=== PATIENT | male | born 1960 | race Caucasian/White ===

== ENCOUNTER 2021-11-28 00:58 | Inpatient (IN) | payer OTHER ==
[2021-11-28] MEDS ORDERED: SODIUM CHLORIDE 0.9% 1,000 ML IV ONE (02:55)
[2021-11-28] MEDS ORDERED: SODIUM CHLORIDE 0.9% 1,000 ML IV SCH (03:00)
[2021-11-28 03:33] LABS: Basophils % (A) 0 %; Eosinophils % (A) 0 %; HCT 33.7 % (39.0-53.0); HGB 11.5 gm/dL (13.0-17.5); Lymphocytes # (A) 0.6 k/uL (1.0-4.8); Lymphocytes % (A) 5 %; MCH 35.2 pg (25.0-35.0); MCHC 34.3 g/dL (31.0-37.0); MCV 102.7 fL (80.0-100.0); Macrocytosis Slight; Mean Platelet Volume 8.4; Monocytes # (A) 0.5 k/uL (0-1.0); Monocytes % (A) 4 %; Neutrophils # (A) 11.9 k/uL (1.3-7.7); Neutrophils % (A) 91 %; Platelet Count 248 k/uL (150-450); RBC 3.28 m/uL (4.30-5.90); WBC 13.1 k/uL (3.8-10.6)
[2021-11-28 03:34] LABS: Lactic Acid, Venous 1.8 mmol/L (0.7-2.0)
[2021-11-28 03:36] LABS: ALT 35 U/L (4-49); AST 32 U/L (17-59); African American GFR (CKD) >90 (>60 ml/min/1.73 sqM); Albumin 2.5 g/dL (3.5-5.0); Alcohol <10 mg/dL; Alkaline Phosphatase 58 U/L (38-126); Anion Gap 14 mmol/L; Blood Urea Nitrogen 41 mg/dL (9-20); Calcium 6.5 mg/dL (8.4-10.2); Carbon Dioxide 15 mmol/L (22-30); Chloride 109 mmol/L (98-107); Creatine Kinase 206 U/L (55-170); Glucose 77 mg/dL (74-99); Magnesium 1.7 mg/dL (1.6-2.3); Non-African American GFR(CKD) >90 (>60 ml/min/1.73 sqM); Phosphorus 3.6 mg/dL (2.5-4.5); Sodium 138 mmol/L (137-145); Total Bilirubin 0.6 mg/dL (0.2-1.3); Total Protein 4.3 g/dL (6.3-8.2)
[2021-11-28 03:42] LABS: Potassium 2.5 mmol/L (3.5-5.1)
[2021-11-28] MEDS ORDERED: Potassium Replacement Protocol 1 EACH MISC MISCELLANE PRN (03:52)
[2021-11-28] MEDS ORDERED: ONDANSETRON 4 MG/2 ML VIAL IVP PRN (03:53)
[2021-11-28] MEDS ORDERED: LORazepam 2 MG/ML INJ IV PRN ×3 (03:53)
[2021-11-28] MEDS ORDERED: NALOXONE 0.4 MG/ML 1 ML VIAL IV PRN (03:53)
--- NOTE | 2021-11-28 03:58 | XR ---
EXAMINATION TYPE: XR chest 1V DATE OF EXAM: 11/28/2021 COMPARISON: NONE HISTORY: Fall. Pain TECHNIQUE: Single view FINDINGS: There is no heart failure nor confluent pneumonic infiltrate. Costophrenic angles are clear there are chest leads. Bony thorax is intact. IMPRESSION: No active cardiopulmonary disease. Normal heart.
--- NOTE | 2021-11-28 03:58 | CT ---
EXAMINATION TYPE: CT brain marge banda con DATE OF EXAM: 11/28/2021 COMPARISON: None HISTORY: possible fall CT DLP: 1314.5 mGycm Automated exposure control for dose reduction was used. Images obtained from the skull base to T1 vertebra with no contrast. Images obtained of the brain wit h no contrast. There is cerebral cortical atrophy. There is no mass effect or midline shift. No sign of intracranial hemorrhage. The calvarium is intact. There is some minimal hypodensity in the periventricular white matter. The cervical vertebra have normal alignment. There is degenerative disc space narrowing from C4 to C7 with spurring of the endplates. Facet joints are intact. There is mild cervical hypertrophic facet a rthropathy. No compression fracture. No subluxation. IMPRESSION: Mild cerebral atrophy and chronic small vessel ischemia. No acute intracranial abnormality. Mild spondylotic changes in the mid and lower cervical spine. No fracture seen.
--- NOTE | 2021-11-28 03:59 | XR ---
EXAMINATION TYPE: XR pelvis AP view DATE OF EXAM: 11/28/2021 COMPARISON: NONE HISTORY: Fall. Pain TECHNIQUE: Single view FINDINGS: The pelvic ring is intact. Proximal femurs and hip joints are intact. Sacroiliac joints are intact. IMPRESSION: Negative pelvis x-ray exam. No fracture
[2021-11-28] MEDS ORDERED: DEXTROSE 5%-0.45% NACL 1,000 ML IV SCH (04:00)
[2021-11-28] MEDS: POTASSIUM CHLORIDE 10 MEQ in WATER FOR INJECTION 1 100ML.BAG IVPB SCH ×6 (04:04→10:21)
[2021-11-28] MEDS: SODIUM CHLORIDE 0.9% 1,000 ML IV SCH ×3 (04:05→13:33)
[2021-11-28] MEDS ORDERED: THIAMINE 100 MG/ML 2 ML VIAL IM ONE (04:15)
[2021-11-28] MEDS: PANTOPRAZOLE 40 MG/10 ML VIAL IV SCH (08:20)
[2021-11-28] MEDS ORDERED: LORazepam 1 MG/0.5 ML VIAL IV PRN ×3 (17:13→17:14)
[2021-11-28] MEDS: THIAMINE 100 MG TAB PO SCH (19:20)
--- NOTE | 2021-11-29 00:06 | HP ---
HISTORY AND PHYSICAL CHIEF COMPLAINT: Fall and weakness. HISTORY OF PRESENT ILLNESS: This is a 61-year-old gentleman with a past medical history of GERD, pneumonia, ETOH, who is apparently living by himself at home. Apparently, his dad whom he was taking care of is in halfway at this time, but currently during a valve check, the patient was found lying on the floor covered with feces and the patient was taken to [facility]. The patient has rhabdomyolysis. The patient also is confused. The patient is being closely monitored. There is no history of any fever, rigor, or chills. PAST MEDICAL HISTORY: Reviewed including GERD, pneumonia, ETOH. HOME MEDICATIONS: None. ALLERGIES: None. FAMILY HISTORY: History of COPD in the family. SOCIAL HISTORY: Smoking and ETOH. REVIEW OF SYSTEMS: A 14-point review of systems is negative except as mentioned earlier. PHYSICAL EXAMINATION: VITAL SIGNS: Pulse is 90, blood pressure 108/77, respirations 18. HEENT: Conjunctivae normal. NECK: No JVD. CARDIOVASCULAR: S1, S2 muffled. RESPIRATION: Breath sounds diminished at the bases. A few scattered rhonchi and crackles. ABDOMEN: Soft, nontender. LEGS: No edema. NERVOUS SYSTEM: Diffusely weak. LABORATORY DATA: Reviewed. Potassium 2.5. ASSESSMENT: 1. Change in mental status, metabolic encephalopathy, possibly secondary to ETOH or weakness. 2. Hypokalemia. 3. Dehydration, severe. 4. Severe malnutrition. 5. Gait dysfunction. 6. History of gastroesophageal reflux disease. RECOMMENDATIONS AND DISCUSSION: This is a 61-year-old gentleman who presented with multiple complex medical issues. We will monitor the patient closely. Replace potassium. Otherwise, monitor lytes closely. Watch for EtOH, DT precautions and evaluation. Otherwise, PT/OT evaluation. The patient might need ECF rehab. Nutrition supplementation. Dietary evaluation. Once again, the prognosis is extremely guarded. Further recommendations to follow. See orders for further details. MMODL / IJN: [id number] / MTDD
[2021-11-29] MEDS: SODIUM CHLORIDE 0.9% 1,000 ML IV SCH ×2 (06:59→07:24)
[2021-11-29] MEDS: PANTOPRAZOLE 40 MG/10 ML VIAL IV SCH (07:25)
[2021-11-29] MEDS: THIAMINE 100 MG TAB PO SCH ×2 (07:25→17:38)
[2021-11-29] MEDS ORDERED: LORazepam 1 MG TAB PO PRN ×3 (08:45→08:48)
[2021-11-29 11:10] LABS: Basophils # (A) 0.03 X 10*3/uL (0.00-0.10); Basophils % (A) 0.3 %; Eosinophils # (A) 0.03 X 10*3/uL (0.04-0.35); Eosinophils % (A) 0.3 %; HCT 33.6 % (39.6-50.0); HGB 11.3 g/dL (13.0-17.0); Immature Grans, Automated 0.8 %; Lymphocytes # (A) 1.55 X 10*3/uL (0.90-5.00); Lymphocytes % (A) 16.1 %; MCH 34.8 pg (27.0-32.0); MCHC 33.6 g/dL (32.0-37.0); MCV 103.4 fL (80.0-97.0); Mean Platelet Volume 10.6 fL (9.5-12.2); Monocytes # (A) 0.74 X 10*3/uL (0.20-1.00); Monocytes % (A) 7.7 %; NRBC Per 100 WBC 0 /100 WBCS (0.0-0.0); Neutrophils # (A) 7.19 X 10*3/uL (1.80-7.70); Neutrophils % (A) 74.8 %; Platelet Count 224 X 10*3/uL (140-440); RBC 3.25 X 10*6/uL (4.40-5.60); RDW 13.7 % (11.5-14.5); WBC 9.62 X 10*3/uL (4.50-10.00)
[2021-11-29 11:43] LABS: African American GFR (CKD) 127.6 (60.0-200.0); Albumin 3.6 g/dL (3.8-4.9); Albumin/Globulin Ratio 2.12 (1.60-3.17); BUN/Creat Ratio 38.33 Ratio (12.00-20.00); Calcium 8.8 mg/dL (8.7-10.3); Globulin 1.7 g/dL (1.6-3.3); Magnesium 2.3 mg/dL (1.5-2.4); Non-African American GFR(CKD) 110.1 (60.0-200.0); Potassium 3.6 mmol/L (3.5-5.5); Total Bilirubin 0.5 mg/dL (0.30-1.20); Total Protein 5.3 g/dL (6.2-8.2)
[2021-11-29 14:07] VITALS: BMI 15.5
--- NOTE | 2021-11-30 04:53 | PN ---
PROGRESS NOTE SUBJECTIVE: This is a 61-year-old gentleman who was admitted with change in mental status and metabolic encephalopathy, and ETOH, is being closely monitored. The patient has feces smeared all over the body according to the staff. No chest pain. No palpitations. Very poor social support. No chest pain. No palpitation. PHYSICAL EXAMINATION: VITAL SIGNS: Pulse 80, blood pressure 105/70, respirations 16. GENERAL: The patient is still confused. CARDIOVASCULAR: S1, S2 muffled. ABDOMEN: Soft. NERVOUS SYSTEM: No focal deficits. LABS: WBC 9.62. The rest of the labs are noted. CT of the brain, mild cerebral atrophy. ASSESSMENT: 1. Change in mental status, acute metabolic encephalopathy, possibly secondary to ETOH or weakness. 2. Hypokalemia. 3. Dehydration, severe. 4. Severe malnutrition. 5. Gait dysfunction. 6. Multiple medical issues. RECOMMENDATIONS AND DISCUSSION: I recommend to continue current medications, symptomatic treatment. Otherwise PT, OT evaluation, possible ECF rehab. The patient has a very poor social support. The patient's dad whom he was taking care of is apparently in the ECF. Continue to monitor. See orders for further details. Prognosis guarded. MMODL / IJN: [id number] /
[2021-11-30] MEDS: THIAMINE 100 MG TAB PO SCH ×2 (07:27→16:30)
[2021-11-30] MEDS: PANTOPRAZOLE 40 MG/10 ML VIAL IV SCH (07:27)
[2021-11-30] MEDS: FOLIC ACID 1 MG TAB PO SCH (11:49)
[2021-11-30] MEDS: MULTIVITAMINS, THERA 1 EACH TAB PO SCH (11:49)
[2021-11-30] MEDS ORDERED: POTASSIUM CHLORIDE ER 20 MEQ TAB.ER PO STA (14:05)
--- NOTE | 2021-11-30 17:27 | P.PN ---
Subjective Progress Note Date: 11/30/21 This is a 61 year old male who presents with fall. History of chronic alcohol abuse. PT is recommending subacute rehab on discharge, patient is pending insurance coverage and will remain inpatient pending accepting rehab facility. Medically he is cleared for discharge. Hgb today 11.3, B12 and folate levels are pending, suspect patient has component of macrocytic anemia from chronic alcohol use and vitamin deficiency. Electrolytes have improved today. He is alert x3, appropriate and agreeable to rehab. He states his last alcoholic beverage was about 2 weeks ago. Review of Systems Constitutional: Denied any fatigue denied any fever. Cardio vascular: denied any chest pain, palpitations Gastrointestinal: denied any nausea, vomiting, diarrhea Pulmonary: Denied any shortness of breath cough Neurologic denied any new focal deficits All inpatient medications were reviewed and appropriate changes in these medications as dictated in the interval history and assessment and plan. PHYSICAL EXAMINATION: GENERAL: The patient is alert and oriented x3, not in any acute distress. Well developed, well nourished. HEENT: Pupils are round and equally reacting to light. EOMI. No scleral icterus. No conjunctival pallor. Normocephalic, atraumatic. No pharyngeal erythema. No thyromegaly. CARDIOVASCULAR: S1 and S2 present. No murmurs, rubs, or gallops. PULMONARY: Chest is clear to auscultation, no wheezing or crackles. ABDOMEN: Soft, nontender, nondistended, normoactive bowel sounds. No palpable organomegaly. MUSCULOSKELETAL: No joint swelling or deformity. EXTREMITIES: No cyanosis, clubbing, or pedal edema. NEUROLOGICAL: Gross neurological examination did not reveal any focal deficits. Generalized weakness. SKIN: No rashes. Assessment and plan Assessment Change in mental status most likely acute metabolic encephalopathy from the EtOH, electrolyte imbalances patient is currently oriented 3. Hypokalemia improved Dehydration severe improved Severe malnutrition Anemia, macrocytic B12 and Folate pending Gait dysfunction recommending subacute rehab on discharge GI Prophylaxis DVT Prophylaxis Full Code Plan Replace electrolytes as needed Folate supplementation Monitor for acute alcohol withdrawal Medically patient is clear for discharge Subacute rehab pending insurance coverage Case management/social work consultation The impression and plan of care has been dictated by Caitlin Dang, Nurse Practitioner as directed. Dr. Blue MD I have performed a history and physical examination and medical decision making of this patient, discussed the same with the dictator, and agree with the dictators assessment and plan as written, documented as a scribe. Based on total visit time, I have performed more than 50% of this visit. Objective - Vital Signs Vital signs: Vital Signs Temp 98.1 F 11/30/21 13:31 Pulse 78 11/30/21 17:02 Resp 16 11/30/21 17:02 BP 89/60 11/30/21 17:01 Pulse Ox 100 11/30/21 13:31 FiO2 Intake & Output 11/29/21 11/30/21 11/30/21 18:59 06:59 18:59 Intake Total 900 900 Balance 900 900 Weight 48.9 kg Intake: Intake, IV Titration 900 900 Amount Sodium Chloride 0.9% 1, 900 900 000 ml @ 75 mls/hr IV . [id number] [facility] Rx#:[id number] Other: Voiding Method Toilet Toilet # Voids 1 - Labs CBC & Chem 7: 11/29/21 06:01 11/29/21 06:01 Assessment and Plan Time with Patient: Less than 30
[2021-11-30] MEDS: SODIUM CHLORIDE 0.9% 1,000 ML IV SCH (23:55)
[2021-12-01] MEDS: THIAMINE 100 MG TAB PO SCH ×2 (08:31→17:04)
[2021-12-01] MEDS: SODIUM CHLORIDE 0.9% 1,000 ML IV SCH ×3 (08:31→20:39)
[2021-12-01] MEDS: PANTOPRAZOLE 40 MG/10 ML VIAL IV SCH (08:31)
--- NOTE | 2021-12-01 13:39 | P.PN ---
Subjective Progress Note Date: 12/01/21 This is a 61 year old male who presents with fall. History of chronic alcohol abuse. PT is recommending subacute rehab on discharge, patient is pending insurance coverage and will remain inpatient pending accepting rehab facility. Medically he is cleared for discharge. Hgb today 11.3, B12 and folate levels are pending, suspect patient has component of macrocytic anemia from chronic alcohol use and vitamin deficiency. Electrolytes have improved today. He is alert x3, appropriate and agreeable to rehab. He states his last alcoholic beverage was about 2 weeks ago. 12/01/2021 No acute events overnight. Patient is pending medicaid application approval and subacute rehab for discharge. Discussed with CM today. Patient is alert x 3, no signs of acute alcohol withdrawal. Blood pressure 112/70, heart rate 66, temp 97.8, 99% room air. Review of Systems Constitutional: Denied any fatigue denied any fever. Cardio vascular: denied any chest pain, palpitations Gastrointestinal: denied any nausea, vomiting, diarrhea Pulmonary: Denied any shortness of breath cough Neurologic denied any new focal deficits All inpatient medications were reviewed and appropriate changes in these medications as dictated in the interval history and assessment and plan. PHYSICAL EXAMINATION: GENERAL: The patient is alert and oriented x3, not in any acute distress. Well developed, well nourished. HEENT: Pupils are round and equally reacting to light. EOMI. No scleral icterus. No conjunctival pallor. Normocephalic, atraumatic. No pharyngeal erythema. No thyromegaly. CARDIOVASCULAR: S1 and S2 present. No murmurs, rubs, or gallops. PULMONARY: Chest is clear to auscultation, no wheezing or crackles. ABDOMEN: Soft, nontender, nondistended, normoactive bowel sounds. No palpable organomegaly. MUSCULOSKELETAL: No joint swelling or deformity. EXTREMITIES: No cyanosis, clubbing, or pedal edema. NEUROLOGICAL: Gross neurological examination did not reveal any focal deficits. Generalized weakness. SKIN: No rashes. Assessment and plan Assessment Change in mental status most likely acute metabolic encephalopathy from the EtOH, electrolyte imbalances patient is currently oriented 3. Hypokalemia improved Dehydration severe improved Severe malnutrition Anemia, macrocytic B12 and Folate pending Gait dysfunction recommending subacute rehab on discharge GI Prophylaxis DVT Prophylaxis Full Code Plan Replace electrolytes as needed Folate supplementation Monitor for acute alcohol withdrawal Medically patient is clear for discharge Subacute rehab pending insurance coverage Case management/social work consultation The impression and plan of care has been dictated by Caitlin Dang, Nurse Practitioner as directed. Dr. Blue MD I have performed a history and physical examination and medical decision making of this patient, discussed the same with the dictator, and agree with the dictators assessment and plan as written, documented as a scribe. Based on total visit time, I have performed more than 50% of this visit. Objective - Vital Signs Vital signs: Vital Signs Temp 97.8 F 12/01/21 08:00 Pulse 66 12/01/21 08:00 Resp 16 12/01/21 08:00 BP 112/70 12/01/21 08:00 Pulse Ox 99 12/01/21 08:00 FiO2 Intake & Output 11/30/21 12/01/21 12/01/21 18:59 06:59 18:59 Intake Total 900 Balance 900 Intake: Intake, IV Titration 900 Amount Sodium Chloride 0.9% 1, 900 000 ml @ 75 mls/hr IV . [id number] [facility] Rx#:[id number] Other: Voiding Method Toilet Toilet # Voids 1 - Labs CBC & Chem 7: 11/29/21 06:01 11/29/21 06:01 Assessment and Plan Time with Patient: Less than 30
[2021-12-01] MEDS: MULTIVITAMINS, THERA 1 EACH TAB PO SCH (14:00)
[2021-12-01] MEDS: FOLIC ACID 1 MG TAB PO SCH (14:00)
[2021-12-02] MEDS: THIAMINE 100 MG TAB PO SCH ×2 (08:52→17:33)
[2021-12-02] MEDS: PANTOPRAZOLE 40 MG TABLET PO SCH (08:52)
[2021-12-02 11:52] LABS: African American GFR (CKD) 135.5 (60.0-200.0); Anion Gap 9.5 mmol/L (10.00-18.00); BUN/Creat Ratio 20.27 Ratio (12.00-20.00); Blood Urea Nitrogen 10.5 mg/dL (9.0-27.0); Calcium 7.9 mg/dL (8.7-10.3); Carbon Dioxide 28.4 mmol/L (20.0-27.5); Non-African American GFR(CKD) 116.9 (60.0-200.0)
[2021-12-02] MEDS: FOLIC ACID 1 MG TAB PO SCH (12:14)
[2021-12-02] MEDS: MULTIVITAMINS, THERA 1 EACH TAB PO SCH (12:14)
--- NOTE | 2021-12-02 13:47 | P.PN ---
Subjective Progress Note Date: 12/02/21 This is a 61 year old male who presents with fall. History of chronic alcohol abuse. PT is recommending subacute rehab on discharge, patient is pending insurance coverage and will remain inpatient pending accepting rehab facility. Medically he is cleared for discharge. Hgb today 11.3, B12 and folate levels are pending, suspect patient has component of macrocytic anemia from chronic alcohol use and vitamin deficiency. Electrolytes have improved today. He is alert x3, appropriate and agreeable to rehab. He states his last alcoholic beverage was about 2 weeks ago. 12/01/2021 No acute events overnight. Patient is pending medicaid application approval and subacute rehab for discharge. Discussed with CM today. Patient is alert x 3, no signs of acute alcohol withdrawal. Blood pressure 112/70, heart rate 66, temp 97.8, 99% room air. 12/02/2021 Patient evaluated today resting in bed. Pending ECF placement and insurance authorization for subacute rehab. No evidence for acute alcohol withdrawal. Fol low up labs today. He remains hemodynamically stable. States he did sleep well last night, feeling cold he is resting comfortably today. Does not want a sleeping aid. Review of Systems Constitutional: Denied any fatigue denied any fever. Cardio vascular: denied any chest pain, palpitations Gastrointestinal: denied any nausea, vomiting, diarrhea Pulmonary: Denied any shortness of breath cough Neurologic denied any new focal deficits All inpatient medications were reviewed and appropriate changes in these medications as dictated in the interval history and assessment and plan. PHYSICAL EXAMINATION: GENERAL: The patient is alert and oriented x3, not in any acute distress. Well developed, well nourished. HEENT: Pupils are round and equally reacting to light. EOMI. No scleral icterus. No conjunctival pallor. Normocephalic, atraumatic. No pharyngeal erythema. No thyromegaly. CARDIOVASCULAR: S1 and S2 present. No murmurs, rubs, or gallops. PULMONARY: Chest is clear to auscultation, no wheezing or crackles. ABDOMEN: Soft, nontender, nondistended, normoactive bowel sounds. No palpable organomegaly. MUSCULOSKELETAL: No joint swelling or deformity. EXTREMITIES: No cyanosis, clubbing, or pedal edema. NEUROLOGICAL: Gross neurological examination did not reveal any focal deficits. Generalized weakness. SKIN: No rashes. Assessment and plan Assessment Change in mental status most likely acute metabolic encephalopathy from the EtOH, electrolyte imbalances patient is currently oriented 3. Hypokalemia improved Dehydration severe improved Severe malnutrition Anemia, macrocytic B12 and Folate normal Gait dysfunction recommending subacute rehab on discharge GI Prophylaxis DVT Prophylaxis Full Code Plan Replace electrolytes as needed Folate supplementation Monitor for acute alcohol withdrawal Medically patient is clear for discharge Subacute rehab pending insurance coverage Case management/social work consultation The impression and plan of care has been dictated by Caitlin Dang, Nurse Practitioner as directed. Dr. Blue MD I have performed a history and physical examination and medical decision making of this patient, discussed the same with the dictator, and agree with the dictators assessment and plan as written, documented as a scribe. Based on total visit time, I have performed more than 50% of this visit. Objective - Vital Signs Vital signs: Vital Signs Temp 98.1 F 12/02/21 08:00 Pulse 71 12/02/21 08:00 Resp 16 12/02/21 08:00 BP 131/76 12/02/21 08:00 Pulse Ox 100 12/02/21 08:00 FiO2 Intake & Output 12/01/21 12/02/21 12/02/21 18:59 06:59 18:59 Intake Total 600 Output Total 1150 Balance 600 -1150 Intake: Oral 600 Output: Urine 1150 Other: Voiding Method Toilet Urinal # Voids 2 - Labs CBC & Chem 7: 11/29/21 06:01 12/02/21 03:36 Assessment and Plan Time with Patient: Less than 30
[2021-12-02] MEDS: POTASSIUM CHLORIDE ER 20 MEQ TAB.ER PO SCH ×2 (14:54→17:33)
[2021-12-02] MEDS: SODIUM CHLORIDE 0.9% 1,000 ML IV SCH ×2 (16:29→20:21)
[2021-12-03] MEDS: POTASSIUM CHLORIDE ER 20 MEQ TAB.ER PO SCH (07:06)
[2021-12-03] MEDS: THIAMINE 100 MG TAB PO SCH ×2 (07:06→17:12)
[2021-12-03] MEDS: PANTOPRAZOLE 40 MG TABLET PO SCH (07:06)
[2021-12-03] MEDS: MULTIVITAMINS, THERA 1 EACH TAB PO SCH (12:13)
[2021-12-03] MEDS: FOLIC ACID 1 MG TAB PO SCH (12:13)
[2021-12-03] MEDS: SODIUM CHLORIDE 0.9% 1,000 ML IV SCH ×2 (12:13→23:04)
--- NOTE | 2021-12-03 16:37 | P.PN ---
Subjective Progress Note Date: 12/03/21 This is a 61 year old male who presents with fall. History of chronic alcohol abuse. PT is recommending subacute rehab on discharge, patient is pending insurance coverage and will remain inpatient pending accepting rehab facility. Medically he is cleared for discharge. Hgb today 11.3, B12 and folate levels are pending, suspect patient has component of macrocytic anemia from chronic alcohol use and vitamin deficiency. Electrolytes have improved today. He is alert x3, appropriate and agreeable to rehab. He states his last alcoholic beverage was about 2 weeks ago. 12/01/2021 No acute events overnight. Patient is pending medicaid application approval and subacute rehab for discharge. Discussed with CM today. Patient is alert x 3, no signs of acute alcohol withdrawal. Blood pressure 112/70, heart rate 66, temp 97.8, 99% room air. 12/02/2021 Patient evaluated today resting in bed. Pending ECF placement and insurance authorization for subacute rehab. No evidence for acute alcohol withdrawal. Fol low up labs today. He remains hemodynamically stable. States he did sleep well last night, feeling cold he is resting comfortably today. Does not want a sleeping aid. 12/03/2021 Patient is resting in bed today, he has gotten up to chair. He reports sleeping better, no acute events overnight. Mentation has improved. He is not having any acute alcohol withdrawal currently maintained off ativan. He is pending ECF placement for rehab. Potassium 3.5 today he is receiving oral daily potassium replacement. Review of Systems Constitutional: Denied any fatigue denied any fever. Cardio vascular: denied any chest pain, palpitations Gastrointestinal: denied any nausea, vomiting, diarrhea Pulmonary: Denied any shortness of breath cough Neurologic denied any new focal deficits All inpatient medications were reviewed and appropriate changes in these medications as dictated in the interval history and assessment and plan. PHYSICAL EXAMINATION: GENERAL: The patient is alert and oriented x3, not in any acute distress. Well developed, well nourished. HEENT: Pupils are round and equally reacting to light. EOMI. No scleral icterus. No conjunctival pallor. Normocephalic, atraumatic. No pharyngeal erythema. No thyromegaly. CARDIOVASCULAR: S1 and S2 present. No murmurs, rubs, or gallops. PULMONARY: Chest is clear to auscultation, no wheezing or crackles. ABDOMEN: Soft, nontender, nondistended, normoactive bowel sounds. No palpable organomegaly. MUSCULOSKELETAL: No joint swelling or deformity. EXTREMITIES: No cyanosis, clubbing, or pedal edema. NEUROLOGICAL: Gross neurological examination did not reveal any focal deficits. Generalized weakness. SKIN: No rashes. Assessment and plan Assessment Change in mental status most likely acute metabolic encephalopathy from the EtOH, electrolyte imbalances patient is currently oriented 3. Hypokalemia improved Dehydration severe improved Severe malnutrition Anemia, macrocytic B12 and Folate normal Gait dysfunction recommending subacute rehab on discharge GI Prophylaxis DVT Prophylaxis Full Code Plan Replace electrolytes as needed Folate supplementation Monitor for acute alcohol withdrawal Medically patient is clear for discharge Subacute rehab pending insurance coverage Case management/social work consultation The impression and plan of care has been dictated by Caitlin Dang Nurse Practitioner as directed. Dr. Blue MD I have performed a history and physical examination and medical decision making of this patient, discussed the same with the dictator, and agree with the dictators assessment and plan as written, documented as a scribe. Based on total visit time, I have performed more than 50% of this visit. Objective - Vital Signs Vital signs: Vital Signs Temp 98.7 F 12/03/21 08:00 Pulse 86 12/03/21 08:00 Resp 16 12/03/21 08:00 BP 106/72 12/03/21 08:00 Pulse Ox 98 12/03/21 08:00 FiO2 Intake & Output 12/02/21 12/03/21 12/03/21 18:59 06:59 18:59 Intake Total 240 Output Total 1750 Balance 240 -1750 Intake: Oral 240 Output: Urine 1750 Other: Voiding Method Toilet Urinal # Voids 4 - Labs CBC & Chem 7: 11/29/21 06:01 12/03/21 05:46 Assessment and Plan Time with Patient: Less than 30
[2021-12-04] MEDS: POTASSIUM CHLORIDE ER 20 MEQ TAB.ER PO SCH (07:58)
[2021-12-04] MEDS: PANTOPRAZOLE 40 MG TABLET PO SCH (07:58)
[2021-12-04] MEDS: THIAMINE 100 MG TAB PO SCH ×2 (07:58→19:42)
[2021-12-04] MEDS ORDERED: FOLIC ACID 1 MG TAB ONE (12:00)
[2021-12-04] MEDS ORDERED: MULTIVITAMINS, THERA 1 EACH TAB ONE (12:00)
[2021-12-04] MEDS ORDERED: THIAMINE 100 MG TAB ONE (12:00)
[2021-12-04] MEDS: MULTIVITAMINS, THERA 1 EACH TAB PO SCH (19:42)
[2021-12-04] MEDS: SODIUM CHLORIDE 0.9% 1,000 ML IV SCH (19:42)
[2021-12-04] MEDS: FOLIC ACID 1 MG TAB PO SCH (19:42)
[2021-12-05] MEDS: POTASSIUM CHLORIDE ER 20 MEQ TAB.ER PO SCH (07:57)
[2021-12-05] MEDS: PANTOPRAZOLE 40 MG TABLET PO SCH (07:57)
[2021-12-05] MEDS: THIAMINE 100 MG TAB PO SCH ×2 (07:58→17:49)
[2021-12-05] MEDS: SODIUM CHLORIDE 0.9% 1,000 ML IV SCH ×2 (07:58→21:50)
--- NOTE | 2021-12-05 10:06 | P.PN ---
Subjective Progress Note Date: 12/04/21 This is a 61 year old male who presents with fall. History of chronic alcohol abuse. PT is recommending subacute rehab on discharge, patient is pending insurance coverage and will remain inpatient pending accepting rehab facility. Medically he is cleared for discharge. Hgb today 11.3, B12 and folate levels are pending, suspect patient has component of macrocytic anemia from chronic alcohol use and vitamin deficiency. Electrolytes have improved today. He is alert x3, appropriate and agreeable to rehab. He states his last alcoholic beverage was about 2 weeks ago. 12/01/2021 No acute events overnight. Patient is pending medicaid application approval and subacute rehab for discharge. Discussed with CM today. Patient is alert x 3, no signs of acute alcohol withdrawal. Blood pressure 112/70, heart rate 66, temp 97.8, 99% room air. 12/02/2021 Patient evaluated today resting in bed. Pending ECF placement and insurance authorization for subacute rehab. No evidence for acute alcohol withdrawal. F ollow up labs today. He remains hemodynamically stable. States he did sleep well last night, feeling cold he is resting comfortably today. Does not want a sleeping aid. 12/03/2021 Patient is resting in bed today, he has gotten up to chair. He reports sleeping better, no acute events overnight. Mentation has improved. He is not having any acute alcohol withdrawal currently maintained off ativan. He is pending ECF placement for rehab. Potassium 3.5 today he is receiving oral daily potassium replacement. 12/04/2021 Patient is seen and evaluated in follow-up this morning waiting ECF for don nued PT/OT therapy with case management following and working on accepting facility. No acute overnight issues noted. Recommend continuing to work with physical therapy daily. Patient reports a tolerating diet with no reports of nausea or vomiting noted. Patient denies chest pain or shortness of breath. Having some insurance barriers and will discuss further with case management. Review of Systems Constitutional: Denied any fatigue denied any fever. Cardio vascular: denied any chest pain, palpitations Gastrointestinal: denied any nausea, vomiting, diarrhea Pulmonary: Denied any shortness of breath cough Neurologic denied any new focal deficits All inpatient medications were reviewed and appropriate changes in these medications as dictated in the interval history and assessment and plan. PHYSICAL EXAMINATION: GENERAL: The patient is alert and oriented x3, not in any acute distress. Well developed, well nourished. HEENT: Pupils are round and equally reacting to light. EOMI. No scleral icterus. No conjunctival pallor. Normocephalic, atraumatic. No pharyngeal erythema. No thyromegaly. CARDIOVASCULAR: S1 and S2 present. No murmurs, rubs, or gallops. PULMONARY: Chest is clear to auscultation, no wheezing or crackles. ABDOMEN: Soft, nontender, nondistended, normoactive bowel sounds. No palpable organomegaly. MUSCULOSKELETAL: No joint swelling or deformity. EXTREMITIES: No cyanosis, clubbing, or pedal edema. NEUROLOGICAL: Gross neurological examination did not reveal any focal deficits. Generalized weakness. SKIN: No rashes. Assessment: Change in mental status most likely acute metabolic encephalopathy from the EtOH, electrolyte imbalances patient is currently oriented 3. Hypokalemia improved Dehydration severe improved Severe malnutrition Anemia, macrocytic B12 and Folate normal Gait dysfunction recommending subacute rehab on discharge GI Prophylaxis DVT Prophylaxis Full Code Plan: Replace electrolytes as needed Folate supplementation Monitor for acute alcohol withdrawal Medically patient is clear for discharge Subacute rehab pending insurance coverage Case management/social work following and will discuss further with discharge planning for possible ECF. Possible discharge in 24 hours The impression and plan of care has been dictated by Randee Perez, Nurse Practitioner as directed. Dr. Bre MD I have performed a history and examination and MDM of this patient, discussed the same with the dictator, and agree with the dictator's assessment and plan as written ,documented as a scribe. Based on total visit time, I have performed more than 50% of the visit. Objective - Vital Signs Vital signs: Vital Signs Temp 97.9 F 12/04/21 07:13 Pulse 85 12/04/21 07:13 Resp 17 12/04/21 07:13 BP 118/77 12/04/21 07:13 Pulse Ox 98 12/04/21 07:13 FiO2 Intake & Output 12/03/21 12/04/21 12/04/21 18:59 06:59 18:59 Output Total 175 Balance -175 Output: Urine 175 Other: Voiding Method Toilet Urinal # Voids 5 - Labs CBC & Chem 7: 11/29/21 06:01 12/03/21 05:46
--- NOTE | 2021-12-05 16:38 | P.PN ---
Subjective Progress Note Date: 12/05/21 This is a 61 year old male who presents with fall. History of chronic alcohol abuse. PT is recommending subacute rehab on discharge, patient is pending insurance coverage and will remain inpatient pending accepting rehab facility. Medically he is cleared for discharge. Hgb today 11.3, B12 and folate levels are pending, suspect patient has component of macrocytic anemia from chronic alcohol use and vitamin deficiency. Electrolytes have improved today. He is alert x3, appropriate and agreeable to rehab. He states his last alcoholic beverage was about 2 weeks ago. 12/01/2021 No acute events overnight. Patient is pending medicaid application approval and subacute rehab for discharge. Discussed with CM today. Patient is alert x 3, no signs of acute alcohol withdrawal. Blood pressure 112/70, heart rate 66, temp 97.8, 99% room air. 12/02/2021 Patient evaluated today resting in bed. Pending ECF placement and insurance authorization for subacute rehab. No evidence for acute alcohol withdrawal. F ollow up labs today. He remains hemodynamically stable. States he did sleep well last night, feeling cold he is resting comfortably today. Does not want a sleeping aid. 12/03/2021 Patient is resting in bed today, he has gotten up to chair. He reports sleeping better, no acute events overnight. Mentation has improved. He is not having any acute alcohol withdrawal currently maintained off ativan. He is pending ECF placement for rehab. Potassium 3.5 today he is receiving oral daily potassium replacement. 12/04/2021 Patient is seen and evaluated in follow-up this morning waiting ECF for don nued PT/OT therapy with case management following and working on accepting facility. No acute overnight issues noted. Recommend continuing to work with physical therapy daily. Patient reports a tolerating diet with no reports of nausea or vomiting noted. Patient denies chest pain or shortness of breath. Having some insurance barriers and will discuss further with case management. 12/05/2021 Patient is seen this morning resting although easily arousable. Mentation is much improved and patient continues with weakness with case management following working on accepting ECF. No local ECF will accept the patient due to no insurance and medication application has been submitted and pending. Multiple referrals sent out to other ECF and awaiting accepting facility. Patient is currently afebrile denies chest pain or shortness of breath. Patient denies nausea or vomiting and is tolerating diet. Will order repeat labs and continue to monitor the patient closely. Will discuss with case management again in the morning about discharge planning. Recommend working with physical therapy daily and increasing activity as tolerated. Review of Systems Constitutional: Denied any fatigue denied any fever. Cardio vascular: denied any chest pain, palpitations Gastrointestinal: denied any nausea, vomiting, diarrhea Pulmonary: Denied any shortness of breath cough Neurologic denied any new focal deficits, reports continued weakness and feels unsafe to return home alone All inpatient medications were reviewed and appropriate changes in these medications as dictated in the interval history and assessment and plan. PHYSICAL EXAMINATION: GENERAL: The patient is alert and oriented x3, not in any acute distress. Well developed, well nourished. HEENT: Pupils are round and equally reacting to light. EOMI. No scleral icterus. No conjunctival pallor. Normocephalic, atraumatic. No pharyngeal erythema. No thyromegaly. CARDIOVASCULAR: S1 and S2 present. No murmurs, rubs, or gallops. PULMONARY: Chest is clear to auscultation, no wheezing or crackles. ABDOMEN: Soft, nontender, nondistended, normoactive bowel sounds. No palpable organomegaly. MUSCULOSKELETAL: No joint swelling or deformity. EXTREMITIES: No cyanosis, clubbing, or pedal edema. NEUROLOGICAL: Gross neurological examination did not reveal any focal deficits. Generalized weakness. SKIN: No rashes. Assessment: Change in mental status most likely acute metabolic encephalopathy from the EtOH, electrolyte imbalances patient is currently oriented 3. Hypokalemia improved Dehydration severe improved Severe malnutrition Anemia, macrocytic B12 and Folate normal Gait dysfunction recommending subacute rehab on discharge GI Prophylaxis DVT Prophylaxis Full Code Plan: Replace electrolytes as needed no new labs and will repeat labs in the a.m. Folate supplementation Monitor for acute alcohol withdrawal patient is not having any active withdrawals , Medically patient is clear for discharge Subacute rehab pending insurance coverage, Medicaid now pending as application has been submitted Case management/social work following and will discuss further with discharge planning for possible ECF. awaiting an accepting ECF The impression and plan of care has been dictated by Randee Perez, Nurse Practitioner as directed. Dr. Bre MD I have performed a history and examination and MDM of this patient, discussed the same with the dictator, and agree with the dictator's assessment and plan as written ,documented as a scribe. Based on total visit time, I have performed more than 50% of the visit. Objective - Vital Signs Vital signs: Vital Signs Temp 97.9 F 12/05/21 08:00 Pulse 66 12/05/21 08:00 Resp 14 12/05/21 08:00 BP 136/72 12/05/21 08:00 Pulse Ox 99 12/05/21 08:00 FiO2 Intake & Output 12/04/21 12/05/21 12/05/21 18:59 06:59 18:59 Intake Total 300 Output Total 175 Balance 125 Weight 48.9 kg Intake: Oral 300 Output: Urine 175 Other: Voiding Method Toilet Urinal # Voids 5 - Labs CBC & Chem 7: 11/29/21 06:01 12/03/21 05:46
[2021-12-05] MEDS: MULTIVITAMINS, THERA 1 EACH TAB PO SCH (17:49)
[2021-12-05] MEDS: FOLIC ACID 1 MG TAB PO SCH (17:49)
[2021-12-06] MEDS: THIAMINE 100 MG TAB PO SCH ×2 (07:34→17:12)
[2021-12-06] MEDS: SODIUM CHLORIDE 0.9% 1,000 ML IV SCH (07:34)
[2021-12-06] MEDS: POTASSIUM CHLORIDE ER 20 MEQ TAB.ER PO SCH (07:34)
[2021-12-06] MEDS: PANTOPRAZOLE 40 MG TABLET PO SCH (07:34)
[2021-12-06 11:02] LABS: African American GFR (CKD) >90 (>60 ml/min/1.73 sqM); Anion Gap 7 mmol/L; Blood Urea Nitrogen 16 mg/dL (9-20); Calcium 8.4 mg/dL (8.4-10.2); Carbon Dioxide 28 mmol/L (22-30); Chloride 103 mmol/L (98-107); Glucose 91 mg/dL (74-99); Non-African American GFR(CKD) >90 (>60 ml/min/1.73 sqM); Potassium 4.1 mmol/L (3.5-5.1); Sodium 138 mmol/L (137-145)
[2021-12-06 11:58] LABS: Basophils % (A) 1 %; Eosinophils # (A) 0.1 k/uL (0-0.7); Eosinophils % (A) 1 %; HCT 30.4 % (39.0-53.0); Lymphocytes # (A) 1.1 k/uL (1.0-4.8); Lymphocytes % (A) 17 %; MCH 35.1 pg (25.0-35.0); MCHC 32.8 g/dL (31.0-37.0); Macrocytosis Moderate; Mean Platelet Volume 8.3; Monocytes # (A) 0.3 k/uL (0-1.0); Monocytes % (A) 5 %; Neutrophils # (A) 4.7 k/uL (1.3-7.7); Neutrophils % (A) 75 %; Platelet Count 341 k/uL (150-450); RBC 2.84 m/uL (4.30-5.90); RDW 15.1 % (11.5-15.5); WBC 6.3 k/uL (3.8-10.6)
[2021-12-06] MEDS: MULTIVITAMINS, THERA 1 EACH TAB PO SCH (17:12)
[2021-12-06] MEDS: FOLIC ACID 1 MG TAB PO SCH (17:12)
--- NOTE | 2021-12-06 23:55 | P.PN ---
Subjective Progress Note Date: 12/06/21 This is a 61 year old male who presents with fall. History of chronic alcohol abuse. PT is recommending subacute rehab on discharge, patient is pending insurance coverage and will remain inpatient pending accepting rehab facility. Medically he is cleared for discharge. Hgb today 11.3, B12 and folate levels are pending, suspect patient has component of macrocytic anemia from chronic alcohol use and vitamin deficiency. Electrolytes have improved today. He is alert x3, appropriate and agreeable to rehab. He states his last alcoholic beverage was about 2 weeks ago. 12/01/2021 No acute events overnight. Patient is pending medicaid application approval and subacute rehab for discharge. Discussed with CM today. Patient is alert x 3, no signs of acute alcohol withdrawal. Blood pressure 112/70, heart rate 66, temp 97.8, 99% room air. 12/02/2021 Patient evaluated today resting in bed. Pending ECF placement and insurance authorization for subacute rehab. No evidence for acute alcohol withdrawal. F ollow up labs today. He remains hemodynamically stable. States he did sleep well last night, feeling cold he is resting comfortably today. Does not want a sleeping aid. 12/03/2021 Patient is resting in bed today, he has gotten up to chair. He reports sleeping better, no acute events overnight. Mentation has improved. He is not having any acute alcohol withdrawal currently maintained off ativan. He is pending ECF placement for rehab. Potassium 3.5 today he is receiving oral daily potassium replacement. 12/04/2021 Patient is seen and evaluated in follow-up this morning waiting ECF for don nued PT/OT therapy with case management following and working on accepting facility. No acute overnight issues noted. Recommend continuing to work with physical therapy daily. Patient reports a tolerating diet with no reports of nausea or vomiting noted. Patient denies chest pain or shortness of breath. Having some insurance barriers and will discuss further with case management. 12/05/2021 Patient is seen this morning resting although easily arousable. Mentation is much improved and patient continues with weakness with case management following working on accepting ECF. No local ECF will accept the patient due to no insurance and medication application has been submitted and pending. Multiple referrals sent out to other ECF and awaiting accepting facility. Patient is currently afebrile denies chest pain or shortness of breath. Patient denies nausea or vomiting and is tolerating diet. Will order repeat labs and continue to monitor the patient closely. Will discuss with case management again in the morning about discharge planning. Recommend working with physical therapy daily and increasing activity as tolerated. 12/06/2021 Patient is seen in follow up today and doing well. Was able to get up and work with physical therapy independently and reports to feeling better. Inquiring if there is an accepting facility to go to yet and case management has submitted referrals. Patient will not qualify for ECF as he is doing well. concern for home living situation and had a discussion with his brother. Concerns for relapsing and beginning drinking again. Patient is not withdrawing and denies chest pain, shortness of breath or palpitations. Patient is afebrile and leonel erating diet. Brother trying to arrange for possible home care or someone to come visit the home frequently to monitor the patient. Brother also reports the sewer contractor in the home is backed up and needs repair. Will need to establish with a primary care provider to initiate home care services. Review of Systems Constitutional: Denied any fatigue denied any fever. Cardio vascular: denied any chest pain, palpitations Gastrointestinal: denied any nausea, vomiting, diarrhea Pulmonary: Denied any shortness of breath cough Neurologic denied any new focal deficits All inpatient medications were reviewed and appropriate changes in these medications as dictated in the interval history and assessment and plan. PHYSICAL EXAMINATION: GENERAL: The patient is alert and oriented x3, not in any acute distress. Well developed, well nourished. HEENT: Pupils are round and equally reacting to light. EOMI. No scleral icterus. No conjunctival pallor. Normocephalic, atraumatic. No pharyngeal erythema. No thyromegaly. CARDIOVASCULAR: S1 and S2 present. No murmurs, rubs, or gallops. PULMONARY: Chest is clear to auscultation, no wheezing or crackles. ABDOMEN: Soft, nontender, nondistended, normoactive bowel sounds. No palpable organomegaly. MUSCULOSKELETAL: No joint swelling or deformity. EXTREMITIES: No cyanosis, clubbing, or pedal edema. NEUROLOGICAL: Gross neurological examination did not reveal any focal deficits. SKIN: No rashes. Assessment: Change in mental status most likely acute metabolic encephalopathy from the EtOH, electrolyte imbalances patient is currently oriented 3. Hypokalemia improved Dehydration severe improved Severe malnutrition Anemia, macrocytic B12 and Folate normal Gait dysfunction GI Prophylaxis DVT Prophylaxis Full Code Plan: Replace electrolytes as needed labs reviewed and within normal limits Folate supplementation Monitor for acute alcohol withdrawal patient is not having any active withdrawals Medically patient is clear for discharge Subacute rehab pending insurance coverage, Medicaid now pending as application has been submitted, no accepting facilities and patient is now able to walk 500 ft independently and will start discharge planning. Discussed with brother Karrie and will need to update as he was under the impression patient would be possibly going to rehab. Home situation is unsafe as the sewer contractor is backed up and brother working on getting that fixed. Will discuss with karrie and possible discharge in 24 hours. The impression and plan of care has been dictated by Randee Perez, Nurse Practitioner as directed. Dr. Bre MD I have performed a history and examination and MDM of this patient, discussed the same with the dictator, and agree with the dictator's assessment and plan as written ,documented as a scribe. Based on total visit time, I have performed more than 50% of the visit. Objective - Vital Signs Vital signs: Vital Signs Temp 97.7 F 12/06/21 07:38 Pulse 64 12/06/21 07:38 Resp 17 12/06/21 07:38 BP 104/64 12/06/21 07:38 Pulse Ox 97 12/06/21 07:38 FiO2 Intake & Output 12/05/21 12/06/21 12/06/21 18:59 06:59 18:59 Intake Total 480 Balance 480 Weight 48.9 kg Intake: Oral 480 Other: Voiding Method Toilet Urinal # Voids 3 2 - Labs CBC & Chem 7: 12/06/21 10:11 12/06/21 10:11
[2021-12-07] MEDS: SODIUM CHLORIDE 0.9% 1,000 ML IV SCH ×3 (02:11→21:05)
[2021-12-07] MEDS: POTASSIUM CHLORIDE ER 20 MEQ TAB.ER PO SCH (08:25)
[2021-12-07] MEDS: THIAMINE 100 MG TAB PO SCH ×2 (08:25→16:54)
[2021-12-07] MEDS: PANTOPRAZOLE 40 MG TABLET PO SCH (08:25)
[2021-12-07] MEDS: MULTIVITAMINS, THERA 1 EACH TAB PO SCH (12:03)
[2021-12-07] MEDS: FOLIC ACID 1 MG TAB PO SCH (12:03)
--- NOTE | 2021-12-07 19:36 | P.PN ---
Subjective Progress Note Date: 12/07/21 This is a 61 year old male who presents with fall. History of chronic alcohol abuse. PT is recommending subacute rehab on discharge, patient is pending insurance coverage and will remain inpatient pending accepting rehab facility. Medically he is cleared for discharge. Hgb today 11.3, B12 and folate levels are pending, suspect patient has component of macrocytic anemia from chronic alcohol use and vitamin deficiency. Electrolytes have improved today. He is alert x3, appropriate and agreeable to rehab. He states his last alcoholic beverage was about 2 weeks ago. 12/01/2021 No acute events overnight. Patient is pending medicaid application approval and subacute rehab for discharge. Discussed with CM today. Patient is alert x 3, no signs of acute alcohol withdrawal. Blood pressure 112/70, heart rate 66, temp 97.8, 99% room air. 12/02/2021 Patient evaluated today resting in bed. Pending ECF placement and insurance authorization for subacute rehab. No evidence for acute alcohol withdrawal. F ollow up labs today. He remains hemodynamically stable. States he did sleep well last night, feeling cold he is resting comfortably today. Does not want a sleeping aid. 12/03/2021 Patient is resting in bed today, he has gotten up to chair. He reports sleeping better, no acute events overnight. Mentation has improved. He is not having any acute alcohol withdrawal currently maintained off ativan. He is pending ECF placement for rehab. Potassium 3.5 today he is receiving oral daily potassium replacement. 12/04/2021 Patient is seen and evaluated in follow-up this morning waiting ECF for don nued PT/OT therapy with case management following and working on accepting facility. No acute overnight issues noted. Recommend continuing to work with physical therapy daily. Patient reports a tolerating diet with no reports of nausea or vomiting noted. Patient denies chest pain or shortness of breath. Having some insurance barriers and will discuss further with case management. 12/05/2021 Patient is seen this morning resting although easily arousable. Mentation is much improved and patient continues with weakness with case management following working on accepting ECF. No local ECF will accept the patient due to no insurance and medication application has been submitted and pending. Multiple referrals sent out to other ECF and awaiting accepting facility. Patient is currently afebrile denies chest pain or shortness of breath. Patient denies nausea or vomiting and is tolerating diet. Will order repeat labs and continue to monitor the patient closely. Will discuss with case management again in the morning about discharge planning. Recommend working with physical therapy daily and increasing activity as tolerated. 12/06/2021 Patient is seen in follow up today and doing well. Was able to get up and work with physical therapy independently and reports to feeling better. Inquiring if there is an accepting facility to go to yet and case management has submitted referrals. Patient will not qualify for ECF as he is doing well. concern for home living situation and had a discussion with his brother. Concerns for relapsing and beginning drinking again. Patient is not withdrawing and denies chest pain, shortness of breath or palpitations. Patient is afebrile and leonel erating diet. Brother trying to arrange for possible home care or someone to come visit the home frequently to monitor the patient. Brother also reports the hat and cap sewer in the home is backed up and needs repair. Will need to establish with a primary care provider to initiate home care services. 12/07/2021 Patient is seen today and had a discussion with case management along with brother and will be returning home. Brother Don reports that the hat and cap sewer is not functioning in the house and someone is to be out today or tomorrow to fix it. Brother also arranging for increased supervision and possible home care in the home. Arranging for discharge planning and will likely be safe and ready for Friday. Arranging an appointment with his preferred pcp Dr. Manjarrez who his father follows with as his pcp was Dr. Lopez although has retired. Patient is afebrile and denies chest pain or shortness of breath. Patient is tolerating diet with no reports of nausea or vomiting noted. Review of Systems Constitutional: Denied any fatigue denied any fever. Cardio vascular: denied any chest pain, palpitations Gastrointestinal: denied any nausea, vomiting, diarrhea Pulmonary: Denied any shortness of breath cough Neurologic denied any new focal deficits All inpatient medications were reviewed and appropriate changes in these medications as dictated in the interval history and assessment and plan. PHYSICAL EXAMINATION: GENERAL: The patient is alert and oriented x3, not in any acute distress. Well developed, well nourished. HEENT: Pupils are round and equally reacting to light. EOMI. No scleral icterus. No conjunctival pallor. Normocephalic, atraumatic. No pharyngeal erythema. No thyromegaly. CARDIOVASCULAR: S1 and S2 present. No murmurs, rubs, or gallops. PULMONARY: Chest is clear to auscultation, no wheezing or crackles. ABDOMEN: Soft, nontender, nondistended, normoactive bowel sounds. No palpable organomegaly. MUSCULOSKELETAL: No joint swelling or deformity. EXTREMITIES: No cyanosis, clubbing, or pedal edema. NEUROLOGICAL: Gross neurological examination did not reveal any focal deficits. SKIN: No rashes. Assessment: Change in mental status most likely acute metabolic encephalopathy from the EtOH, electrolyte imbalances patient is currently oriented 3. resolved Hypokalemia improved Dehydration severe improved Severe malnutrition Anemia, macrocytic B12 and Folate normal Gait dysfunction GI Prophylaxis DVT Prophylaxis Full Code Plan: Replace electrolytes as needed labs reviewed and within normal limits Folate supplementation Monitor for acute alcohol withdrawal patient is not having any active withdrawals Medically patient is clear for discharge although home is currently being cleaned out and hat and cap sewer is being repaired. Medicaid now pending and a pcp is being arranged. Home situation is unsafe as the hat and cap sewer is backed up and brother working on getting that fixed. Had discussion with don and will discharge on Friday. The impression and plan of care has been dictated by Randee Perez, Nurse Practitioner as directed. Dr. Bre MD I have performed a history and examination and MDM of this patient, discussed t he same with the dictator, and agree with the dictator's assessment and plan as written ,documented as a scribe. Based on total visit time, I have performed more than 50% of the visit. Objective - Vital Signs Vital signs: Vital Signs Temp 98.2 F 12/07/21 14:00 Pulse 70 12/07/21 14:00 Resp 18 12/07/21 14:00 BP 95/65 12/07/21 14:00 Pulse Ox 99 12/07/21 14:00 FiO2 Intake & Output 12/07/21 12/07/21 12/08/21 06:59 18:59 06:59 Intake Total 300 Balance 300 Intake: Oral 300 Other: Voiding Method Toilet Toilet Urinal Urinal # Voids 4 - Labs CBC & Chem 7: 12/06/21 10:11 12/06/21 10:11
[2021-12-08] MEDS: POTASSIUM CHLORIDE ER 20 MEQ TAB.ER PO SCH (07:52)
[2021-12-08] MEDS: PANTOPRAZOLE 40 MG TABLET PO SCH (07:52)
[2021-12-08] MEDS: THIAMINE 100 MG TAB PO SCH ×2 (07:52→17:18)
[2021-12-08] MEDS: SODIUM CHLORIDE 0.9% 1,000 ML IV SCH (11:58)
[2021-12-08] MEDS: FOLIC ACID 1 MG TAB PO SCH (12:00)
[2021-12-08] MEDS: MULTIVITAMINS, THERA 1 EACH TAB PO SCH (12:00)
[2021-12-09] MEDS: SODIUM CHLORIDE 0.9% 1,000 ML IV SCH ×3 (05:54→16:13)
[2021-12-09] MEDS: PANTOPRAZOLE 40 MG TABLET PO SCH (08:06)
[2021-12-09] MEDS: FOLIC ACID 1 MG TAB PO SCH (08:06)
[2021-12-09] MEDS: MULTIVITAMINS, THERA 1 EACH TAB PO SCH (08:06)
[2021-12-09] MEDS: POTASSIUM CHLORIDE ER 20 MEQ TAB.ER PO SCH (08:06)
[2021-12-09] MEDS: THIAMINE 100 MG TAB PO SCH ×2 (08:06→16:12)
--- NOTE | 2021-12-09 19:59 | P.PN ---
Subjective Progress Note Date: 12/08/21 This is a 61 year old male who presents with fall. History of chronic alcohol abuse. PT is recommending subacute rehab on discharge, patient is pending insurance coverage and will remain inpatient pending accepting rehab facility. Medically he is cleared for discharge. Hgb today 11.3, B12 and folate levels are pending, suspect patient has component of macrocytic anemia from chronic alcohol use and vitamin deficiency. Electrolytes have improved today. He is alert x3, appropriate and agreeable to rehab. He states his last alcoholic beverage was about 2 weeks ago. 12/01/2021 No acute events overnight. Patient is pending medicaid application approval and subacute rehab for discharge. Discussed with CM today. Patient is alert x 3, no signs of acute alcohol withdrawal. Blood pressure 112/70, heart rate 66, temp 97.8, 99% room air. 12/02/2021 Patient evaluated today resting in bed. Pending ECF placement and insurance authorization for subacute rehab. No evidence for acute alcohol withdrawal. F ollow up labs today. He remains hemodynamically stable. States he did sleep well last night, feeling cold he is resting comfortably today. Does not want a sleeping aid. 12/03/2021 Patient is resting in bed today, he has gotten up to chair. He reports sleeping better, no acute events overnight. Mentation has improved. He is not having any acute alcohol withdrawal currently maintained off ativan. He is pending ECF placement for rehab. Potassium 3.5 today he is receiving oral daily potassium replacement. 12/04/2021 Patient is seen and evaluated in follow-up this morning waiting ECF for don nued PT/OT therapy with case management following and working on accepting facility. No acute overnight issues noted. Recommend continuing to work with physical therapy daily. Patient reports a tolerating diet with no reports of nausea or vomiting noted. Patient denies chest pain or shortness of breath. Having some insurance barriers and will discuss further with case management. 12/05/2021 Patient is seen this morning resting although easily arousable. Mentation is much improved and patient continues with weakness with case management following working on accepting ECF. No local ECF will accept the patient due to no insurance and medication application has been submitted and pending. Multiple referrals sent out to other ECF and awaiting accepting facility. Patient is currently afebrile denies chest pain or shortness of breath. Patient denies nausea or vomiting and is tolerating diet. Will order repeat labs and continue to monitor the patient closely. Will discuss with case management again in the morning about discharge planning. Recommend working with physical therapy daily and increasing activity as tolerated. 12/06/2021 Patient is seen in follow up today and doing well. Was able to get up and work with physical therapy independently and reports to feeling better. Inquiring if there is an accepting facility to go to yet and case management has submitted referrals. Patient will not qualify for ECF as he is doing well. concern for home living situation and had a discussion with his brother. Concerns for relapsing and beginning drinking again. Patient is not withdrawing and denies chest pain, shortness of breath or palpitations. Patient is afebrile and leonel erating diet. Brother trying to arrange for possible home care or someone to come visit the home frequently to monitor the patient. Brother also reports the applique sewer in the home is backed up and needs repair. Will need to establish with a primary care provider to initiate home care services. 12/07/2021 Patient is seen today and had a discussion with case management along with brother and will be returning home. Brother Don reports that the applique sewer is not functioning in the house and someone is to be out today or tomorrow to fix it. Brother also arranging for increased supervision and possible home care in the home. Arranging for discharge planning and will likely be safe and ready for Friday. Arranging an appointment with his preferred pcp Dr. Manjarrez who his father follows with as his pcp was Dr. Lopez although has retired. Patient is afebrile and denies chest pain or shortness of breath. Patient is tolerating diet with no reports of nausea or vomiting noted. 12/08/2021 Patient seen today and being monitored closely. Making home arrangements for safe discharge planning as patient will not qualify for rehab as he was doing too well independently. Brother having the applique sewer system fixed and cleaning the home. Patient per nursing staff had a low blood pressure reading of 90 systolic and was continued on IV fluids and improved. Patient asymptomatic and denies chest pain, shortness of breath or dizziness or lightheadedness. Patient is afebrile and denies nausea or vomiting. Patient will return home with home care being arranged outpatient after establishing with pcp that is scheduled for this week. Review of Systems Constitutional: Denied any fatigue denied any fever. Cardio vascular: denied any chest pain, palpitations Gastrointestinal: denied any nausea, vomiting, diarrhea Pulmonary: Denied any shortness of breath cough Neurologic denied any new focal deficits All inpatient medications were reviewed and appropriate changes in these medications as dictated in the interval history and assessment and plan. PHYSICAL EXAMINATION: GENERAL: The patient is alert and oriented x3, not in any acute distress. Well developed, well nourished. HEENT: Pupils are round and equally reacting to light. EOMI. No scleral icterus. No conjunctival pallor. Normocephalic, atraumatic. No pharyngeal erythema. No thyromegaly. CARDIOVASCULAR: S1 and S2 present. No murmurs, rubs, or gallops. PULMONARY: Chest is clear to auscultation, no wheezing or crackles. ABDOMEN: Soft, nontender, nondistended, normoactive bowel sounds. No palpable organomegaly. MUSCULOSKELETAL: No joint swelling or deformity. EXTREMITIES: No cyanosis, clubbing, or pedal edema. NEUROLOGICAL: Gross neurological examination did not reveal any focal deficits. SKIN: No rashes. Assessment: Change in mental status most likely acute metabolic encephalopathy from the EtOH, electrolyte imbalances patient is currently oriented 3. resolved Hypokalemia improved Dehydration severe improved Severe malnutrition Anemia, macrocytic B12 and Folate normal Gait dysfunction GI Prophylaxis DVT Prophylaxis Full Code Plan: Replace electrolytes as needed labs reviewed and within normal limits Folate supplementation Monitor for acute alcohol withdrawal patient is not having any active withdrawals Medically patient is clear for discharge although home is currently being clean ed out and applique sewer is being repaired. Medicaid now pending and a pcp is being arranged. Home situation is unsafe as the applique sewer is backed up and brother working on getting that fixed. Had discussion with don and will discharge on Friday. Recommend to monitor vital signs closely. The impression and plan of care has been dictated as a scribe by Randee Perez, Nurse Practitioner as directed. Dr. Bre MD I have performed a history and examination and MDM of this patient, discussed the same with the dictator, and agree with the dictator's assessment and plan as written ,documented as a scribe. Based on total visit time, I have performed more than 50% of the visit. Objective - Vital Signs Vital signs: Vital Signs Temp 98.4 F 12/09/21 18:23 Pulse 64 12/09/21 18:23 Resp 17 12/09/21 18:23 BP 93/63 12/09/21 18:23 Pulse Ox 90 L 12/09/21 18:23 FiO2 Intake & Output 12/09/21 12/09/21 12/10/21 06:59 18:59 06:59 Other: Voiding Method Toilet Urinal # Voids 1 3 - Labs CBC & Chem 7: 12/06/21 10:11 12/06/21 10:11
--- NOTE | 2021-12-09 20:07 | P.PN ---
Subjective Progress Note Date: 12/09/21 This is a 61 year old male who presents with fall. History of chronic alcohol abuse. PT is recommending subacute rehab on discharge, patient is pending insurance coverage and will remain inpatient pending accepting rehab facility. Medically he is cleared for discharge. Hgb today 11.3, B12 and folate levels are pending, suspect patient has component of macrocytic anemia from chronic alcohol use and vitamin deficiency. Electrolytes have improved today. He is alert x3, appropriate and agreeable to rehab. He states his last alcoholic beverage was about 2 weeks ago. 12/01/2021 No acute events overnight. Patient is pending medicaid application approval and subacute rehab for discharge. Discussed with CM today. Patient is alert x 3, no signs of acute alcohol withdrawal. Blood pressure 112/70, heart rate 66, temp 97.8, 99% room air. 12/02/2021 Patient evaluated today resting in bed. Pending ECF placement and insurance authorization for subacute rehab. No evidence for acute alcohol withdrawal. F ollow up labs today. He remains hemodynamically stable. States he did sleep well last night, feeling cold he is resting comfortably today. Does not want a sleeping aid. 12/03/2021 Patient is resting in bed today, he has gotten up to chair. He reports sleeping better, no acute events overnight. Mentation has improved. He is not having any acute alcohol withdrawal currently maintained off ativan. He is pending ECF placement for rehab. Potassium 3.5 today he is receiving oral daily potassium replacement. 12/04/2021 Patient is seen and evaluated in follow-up this morning waiting ECF for don nued PT/OT therapy with case management following and working on accepting facility. No acute overnight issues noted. Recommend continuing to work with physical therapy daily. Patient reports a tolerating diet with no reports of nausea or vomiting noted. Patient denies chest pain or shortness of breath. Having some insurance barriers and will discuss further with case management. 12/05/2021 Patient is seen this morning resting although easily arousable. Mentation is much improved and patient continues with weakness with case management following working on accepting ECF. No local ECF will accept the patient due to no insurance and medication application has been submitted and pending. Multiple referrals sent out to other ECF and awaiting accepting facility. Patient is currently afebrile denies chest pain or shortness of breath. Patient denies nausea or vomiting and is tolerating diet. Will order repeat labs and continue to monitor the patient closely. Will discuss with case management again in the morning about discharge planning. Recommend working with physical therapy daily and increasing activity as tolerated. 12/06/2021 Patient is seen in follow up today and doing well. Was able to get up and work with physical therapy independently and reports to feeling better. Inquiring if there is an accepting facility to go to yet and case management has submitted referrals. Patient will not qualify for ECF as he is doing well. concern for home living situation and had a discussion with his brother. Concerns for relapsing and beginning drinking again. Patient is not withdrawing and denies chest pain, shortness of breath or palpitations. Patient is afebrile and leonel erating diet. Brother trying to arrange for possible home care or someone to come visit the home frequently to monitor the patient. Brother also reports the burlap bag sewer in the home is backed up and needs repair. Will need to establish with a primary care provider to initiate home care services. 12/07/2021 Patient is seen today and had a discussion with case management along with brother and will be returning home. Brother Don reports that the burlap bag sewer is not functioning in the house and someone is to be out today or tomorrow to fix it. Brother also arranging for increased supervision and possible home care in the home. Arranging for discharge planning and will likely be safe and ready for Friday. Arranging an appointment with his preferred pcp Dr. Manjarrez who his father follows with as his pcp was Dr. Lopez although has retired. Patient is afebrile and denies chest pain or shortness of breath. Patient is tolerating diet with no reports of nausea or vomiting noted. 12/08/2021 Patient seen today and being monitored closely. Making home arrangements for safe discharge planning as patient will not qualify for rehab as he was doing too well independently. Brother having the burlap bag sewer system fixed and cleaning the home. Patient per nursing staff had a low blood pressure reading of 90 systolic and was continued on IV fluids and improved. Patient asymptomatic and denies chest pain, shortness of breath or dizziness or lightheadedness. Patient is afebrile and denies nausea or vomiting. Patient will return home with home care being arranged outpatient after establishing with pcp that is scheduled for this week. 12/09/2021 Patient evaluated today with no acute overnight issues noted. Patient is afebrile and denies chest pain or shortness of breath. Tolerating diet and no reports of nausea or vomiting noted. Case management following and will discuss discharge planning and arrange for probable discharge in the am. Review of Systems Constitutional: Denied any fatigue denied any fever. Cardio vascular: denied any chest pain, palpitations Gastrointestinal: denied any nausea, vomiting, diarrhea Pulmonary: Denied any shortness of breath cough Neurologic denied any new focal deficits All inpatient medications were reviewed and appropriate changes in these medications as dictated in the interval history and assessment and plan. PHYSICAL EXAMINATION: GENERAL: The patient is alert and oriented x3, not in any acute distress. Well developed, well nourished. HEENT: Pupils are round and equally reacting to light. EOMI. No scleral icterus. No conjunctival pallor. Normocephalic, atraumatic. No pharyngeal erythema. No thyromegaly. CARDIOVASCULAR: S1 and S2 present. No murmurs, rubs, or gallops. PULMONARY: Chest is clear to auscultation, no wheezing or crackles. ABDOMEN: Soft, nontender, nondistended, normoactive bowel sounds. No palpable organomegaly. MUSCULOSKELETAL: No joint swelling or deformity. EXTREMITIES: No cyanosis, clubbing, or pedal edema. NEUROLOGICAL: Gross neurological examination did not reveal any focal deficits. SKIN: No rashes. Assessment: Change in mental status most likely acute metabolic encephalopathy from the EtOH, electrolyte imbalances patient is currently oriented 3. resolved Hypokalemia improved Dehydration severe improved Severe malnutrition Anemia, macrocytic B12 and Folate normal Gait dysfunction GI Prophylaxis DVT Prophylaxis Full Code Plan: Recommend gentle IV hydration Folate supplementation, encourage oral intake and increased activity as tolerated. Discussed alcohol cessation on discharge Medically patient is clear for discharge although home is currently being cleaned out and burlap bag sewer is being repaired. Medicaid now pending and a pcp is being arranged. Appointment made for early t his week and brother will take him. Arrange for home care with pcp visit. Home situation is unsafe as the burlap bag sewer is backed up and brother working on getting that fixed. Had discussion with don and will discharge on Friday. Recommend to monitor vital signs closely. Possible discharge in 24 hours. The impression and plan of care has been dictated as a scribe by Randee Perez, Nurse Practitioner as directed. Dr. Bre MD I have performed a history and examination and MDM of this patient, discussed the same with the dictator, and agree with the dictator's assessment and plan as written ,documented as a scribe. Based on total visit time, I have performed more than 50% of the visit. Objective - Vital Signs Vital signs: Vital Signs Temp 98.4 F 12/09/21 18:23 Pulse 64 12/09/21 18:23 Resp 17 12/09/21 18:23 BP 93/63 12/09/21 18:23 Pulse Ox 90 L 12/09/21 18:23 FiO2 Intake & Output 12/09/21 12/09/21 12/10/21 06:59 18:59 06:59 Other: Voiding Method Toilet Urinal # Voids 1 3 - Labs CBC & Chem 7: 12/06/21 10:11 12/06/21 10:11
[2021-12-10] MEDS: THIAMINE 100 MG TAB PO SCH (08:13)
[2021-12-10] MEDS: PANTOPRAZOLE 40 MG TABLET PO SCH (08:13)
[2021-12-10] MEDS: POTASSIUM CHLORIDE ER 20 MEQ TAB.ER PO SCH (08:13)
[2021-12-10] MEDS: MULTIVITAMINS, THERA 1 EACH TAB PO SCH (12:31)
[2021-12-10] MEDS: FOLIC ACID 1 MG TAB PO SCH (12:31)
[2021-12-10 14:52] VITALS: BP 96/65; PULSE 75; RESP 14; TEMP 98.5
--- NOTE | 2021-12-12 19:23 | CDI ---
Documentation Clarification Form Date: 12/12/2021 07:12:57 PM From: Nadira Hurd Phone: Admit Date: 11/28/2021 03:53:00 AM Patient Name: Lalo Driver Visit Number: [id number] Discharge Date: 12/10/2021 05:02:00 PM ATTENTION: The Clinical Documentation Specialists (CDI) and [facility] Coding Staff appreciate your assistance in clarifying documentation. Please respond to the clarification below the line at the bottom and electronically sign. The CDI & [facility] Coding staff will review the response and follow-up if needed. Please note: Queries are made part of the Legal Health Record. If you have any questions, please contact the author of this message via ITS. Dr. Claribel Latham Rhabdomyolysis is documented per the H&P. Additional clarification regarding the type of rhabdomyolysis is requested. History/Risk Factors: 61yo M, met encephalopathy, fall, weakness, macrocytic anemia from chronic alcohol use & Vat Def. Hx GERD, Hx PNA, EtOH, lives alone. Pt was found lying on the floor, covered in feces, and had Rhabdomyolysis, Hypokalemia. Severe dehydration, severe malnutrition (BMI 15.5). Gait dysfunction. Clinical Indicators: Pulse is 90, blood pressure 108/77, respirations 18. Treatment: monitor the patient closely. Replace potassium. Otherwise, monitor lytes closely. Watch for ETOH, DT precautions and evaluation. Otherwise, PT/OT evaluation. The patient might need ECF rehab. Nutrition supplementation. Dietary evaluation. Once again, the prognosis is extremely guarded. Please clarify the type of rhabdomyolysis, if known: [ ] Traumatic rhabdomyolysis due to fall [ x ] Non traumatic rhabdomyolysis due to (please specify) [ ] Other, please specify [ ] Unable to Determine (Template Last Revised: May 2020) MTDD
--- NOTE | 2021-12-13 15:02 | P.DS ---
Providers Date of admission: 11/28/21 03:53 Expected date of discharge: 12/10/21 Attending physician: Claribel Latham Primary care physician: Stated None Hospital Course: Final diagnosis Non-traumatic rhabdomyolysis due to EtOH abuse and prolonged downtime Change in mental status most likely acute metabolic encephalopathy from the EtOH, electrolyte imbalances patient is currently oriented 3. resolved Hypokalemia improved Dehydration severe improved Severe malnutrition Anemia, macrocytic B12 and Folate normal Gait dysfunction GI Prophylaxis DVT Prophylaxis Full Code Discharge disposition Patient is being discharged in a stable condition with guarded prognosis to home. Patient will follow-up with Dr. Osborn in the outpatient setting upon discharge. Patient is to follow-up with primary care provider to establish at scheduled appointment this week. Total time taken is greater than 35 minutes. Hospital course This is a 61-year-old male who was recently admitted with altered mental status and electrolyte abnormalities and was being closely monitored. Agent with history of chronic alcohol abuse and was maintained on CIWA protocol although not requiring any although continue with progressive weakness. Patient was treated with IV normal saline and improved. Patient with weakness initially physical therapy recommending rehab although patient continued to improve slowly to hospitalization and ultimately will not qualify given he is walking over 500 feet independently. Patient unfortunately does not have a primary care provider established although one has been arranged for this week to that patient can have home care and the proper resources on discharge. Patient was living at home with his father who is elderly and was recently sent to rehab in the home is what appears to be hoarding, full of garbage, and the sewers were backed up. Brother Don became involved cleaning out the house and getting the sewers fixed and is agreeable with home care and has requested Dr. Manjarrez as his father was following with that office and would like them to have the same primary care provider to arrange for home care on discharge. Patient encouraged to avoid all alcohol intake. Brother also reports he will be closely monitoring and having multiple people check in on him throughout the day until he can arrange for increased supervision. Currently no reports of chest pain, shortness of breath, or palpitations. Patient is afebrile. No reports of nausea or vomiting and patient is tolerating diet. Patient will be discharged home today. Guarded prognosis. Physical exam: Gen: This is a 61-year-old male awake, alert and oriented 2-3. Thin built, cachectic HEENT: Head is atraumatic, normocephalic. Pupils equal, round. Sclerae is anicteric. NECK: Supple. No JVD. No lymphadenopathy. No thyromegaly. LUNGS: Clear to auscultation. No wheezes or rhonchi. No intercostal retractions. HEART: Regular rate and rhythm. No murmur. ABDOMEN: Soft. Bowel sounds are present. No masses. No tenderness. EXTREMITIES: No pedal edema. No calf tenderness. NEUROLOGICAL: Patient is awake, alert and oriented x3. Cranial nerves 2 through 12 are grossly intact. Please refer to medication reconciliation sheet for a list of medications. The impression and plan of care has been dictated by Randee Perez, Nurse Practitioner as directed. Dr. Bre MD I have performed a history and examination and MDM of this patient, discussed the same with the dictator, and agree with the dictator's assessment and plan as written ,documented as a scribe. Based on total visit time, I have performed more than 50% of the visit. Patient Condition at Discharge: Fair Plan - Discharge Summary Discharge Rx Participant: Yes New Discharge Prescriptions: New Folic Acid 1 mg PO DAILY@1200 tab Famotidine [Pepcid] 20 mg PO DAILY #1 tablet Thiamine [Vitamin B-1] 100 mg PO BID-W/MEALS tab Potassium Chloride ER [K-Dur 20] 20 meq PO DAILY 30 Days #30 tab Multivitamins, Thera [Multivitamin (formulary)] 1 each PO DAILY@1200 tab Discharge Medication List Famotidine [Pepcid] 20 mg PO DAILY #1 tablet 11/30/21 [Rx] Folic Acid 1 mg PO DAILY@1200 tab 11/30/21 [Rx] Multivitamins, Thera [Multivitamin (formulary)] 1 each PO DAILY@1200 tab 11/30/21 [Rx] Thiamine [Vitamin B-1] 100 mg PO BID-W/MEALS tab 11/30/21 [Rx] Potassium Chloride ER [K-Dur 20] 20 meq PO DAILY 30 Days #30 tab 12/10/21 [Rx] Follow up Appointment(s)/Referral(s): Drew Manjarrez MD [REFERRING] - 12/11/21 9:00 am Patient Instructions/Handouts: Hypokalemia (DC), Alcohol Withdrawal (DC) Activity/Diet/Wound Care/Special Instructions: Activity Limited until follow-up Follow-up with primary care provider as scheduled this week Continue with current medications Continue current diet Avoid alcohol and tobacco use Discharge Disposition: HOME SELF-CARE
== END 2021-12-10 17:02 | disposition home or self-care (01) | DRG 557 ==
LOC: EC 00:58 → 4SSUR 03:53 → UNDOADMIN 03:53 → 4SSUR 16:28
PROVIDERS: ADMIT Hospitalist; ATTEND Hospitalist
DX: M62.82 Rhabdomyolysis (principal); E43 Unspecified severe protein-calorie malnutrition; G93.41 Metabolic encephalopathy; Z68.1 Body mass index [BMI] 19.9 or less, adult; D53.9 Nutritional anemia, unspecified; G31.9 Degenerative disease of nervous system, unspecified; F10.10 Alcohol abuse, uncomplicated; E87.6 Hypokalemia; E86.0 Dehydration; F17.210 Nicotine dependence, cigarettes, uncomplicated; R26.9 Unspecified abnormalities of gait and mobility; K21.9 Gastro-esophageal reflux disease without esophagitis; E56.9 Vitamin deficiency, unspecified; W19.XXXA Unspecified fall, initial encounter; Z63.8 Other specified problems related to primary support group; Z82.5 Family history of asthma and other chronic lower respiratory diseases; Z87.01 Personal history of pneumonia (recurrent)
CPT/HCPCS: 36415; 70450; 71045; 72125; 72170; 80048; 80053; 80320; 82140; 82550; 82607; 82746; 83605; 83735; 84100; 84132; 84443; 84484; 85025; 96365; 96366; 96372; 96375; 99285